=== PATIENT | female | born 1965 | race Caucasian/White ===

== ENCOUNTER → 2024-03-16 | Day surgery (SDC) | payer MEDICARE, MEDICAID ==
[~2024-03-16] VITALS: Ht 162.6 cm; Wt 61.2 kg
[~2024-03-16] MED LIST: ACETAMINOPHEN 1000MG/100ML 100 ML IV NR; ALBU18HF2 IH; ALBUTEROL (0.083%) 2.5MG/3ML NEB ONE; ALBUTEROL 6.7GM HFA INHALER ONE; BUPIVACAINE HCL/PF 0.5% (5MG/ML) 10ML ONE; CEFAZOLIN SODIUM 1000MG/VIAL ONE; DEXAMETHASONE 4MG/ML 1ML VIAL ONE; FENTANYL CITRATE/PF 50MCG/ML 2ML VIAL IV PRN; FENTANYL CITRATE/PF 50MCG/ML 2ML VIAL ONE; GLYCOPYRROLATE 0.2 MG/ML 2ML VIAL ONE; LABE200T9 PO; LIDOCAINE HCL 1% 20ML VIAL ONE; MIDAZOLAM HCL 2 MG/2 ML VIAL ONE; MONT-39 PO; OLME40TA18 PO; ONDANSETRON HCL 4MG/2ML INJ IV PRN; ONDANSETRON HCL 4MG/2ML INJ ONE; PROPOFOL 200MG/20ML VIAL IV ONE; ROCURONIUM BROMIDE 10MG/ML VIAL 5ML IV ONE; ROSU40TA PO; SKIN ADHESIVE 0.7 GM EA TOP ONE; SUGAMMADEX SODIUM 200MG/2ML VIAL IV ONE
[2024-03-16] MEDS: LACTATED RINGERS 1,000 ML IV SCH (06:28)
[2024-03-16] MEDS: ALBUTEROL (0.083%) 2.5MG/3ML NEB HHN NR (09:27)
[2024-03-16] MEDS: BUPIVACAINE HCL 0.5% 175 ML in ON-Q PM013 DRUG DELIV DEVICE 1 EA IR NR (09:30)
[2024-03-16 09:35] VITALS: PULSE 70; RESP 16; O2SAT 100
== END | disposition home or self-care (01) ==
LOC: OR 05:28
PROVIDERS: ATTEND Surgery
DX: K40.90 Unilateral inguinal hernia, without obstruction or gangrene, not specified as recurrent (principal); I10 Essential (primary) hypertension; E78.5 Hyperlipidemia, unspecified; J45.909 Unspecified asthma, uncomplicated; F41.9 Anxiety disorder, unspecified; Z79.899 Other long term (current) drug therapy; Z90.710 Acquired absence of both cervix and uterus; Z98.890 Other specified postprocedural states; Z88.0 Allergy status to penicillin; Z88.5 Allergy status to narcotic agent; Z88.8 Allergy status to other drugs, medicaments and biological substances
CPT/HCPCS: 49505; 94640; C1781; J3010; J0131; J3490 ×5; J0690; J1100; J2250; J2405; J2704

== ENCOUNTER 2024-03-18 09:55 | Emergency (ER) | payer MEDICARE, MEDICAID ==
[~2024-03-18] VITALS: Ht 167.6 cm; Wt 69.0 kg
[~2024-03-18 09:55] MED LIST changes: -ACETAMINOPHEN 1000MG/100ML 100 ML IV NR; -ALBUTEROL (0.083%) 2.5MG/3ML NEB ONE; -ALBUTEROL 6.7GM HFA INHALER ONE; -BUPIVACAINE HCL/PF 0.5% (5MG/ML) 10ML ONE; -CEFAZOLIN SODIUM 1000MG/VIAL ONE; -DEXAMETHASONE 4MG/ML 1ML VIAL ONE; -FENTANYL CITRATE/PF 50MCG/ML 2ML VIAL IV PRN; -FENTANYL CITRATE/PF 50MCG/ML 2ML VIAL ONE; -GLYCOPYRROLATE 0.2 MG/ML 2ML VIAL ONE; -LIDOCAINE HCL 1% 20ML VIAL ONE; -MIDAZOLAM HCL 2 MG/2 ML VIAL ONE; -ONDANSETRON HCL 4MG/2ML INJ IV PRN; -ONDANSETRON HCL 4MG/2ML INJ ONE; -PROPOFOL 200MG/20ML VIAL IV ONE; -ROCURONIUM BROMIDE 10MG/ML VIAL 5ML IV ONE; -SKIN ADHESIVE 0.7 GM EA TOP ONE; -SUGAMMADEX SODIUM 200MG/2ML VIAL IV ONE
[2024-03-18 10:04] VITALS: O2SAT 98
[2024-03-18 14:00] VITALS: BP 149/94; PULSE 65; RESP 18; TEMP 36.72516; O2SAT 98
== END 2024-03-18 14:00 | disposition home or self-care (01) ==
LOC: ER 09:55
DX: Z47.2 Encounter for removal of internal fixation device (principal); J45.909 Unspecified asthma, uncomplicated; I10 Essential (primary) hypertension; Z90.49 Acquired absence of other specified parts of digestive tract; Z90.710 Acquired absence of both cervix and uterus; Z98.890 Other specified postprocedural states; Z88.0 Allergy status to penicillin; Z88.5 Allergy status to narcotic agent; Z79.899 Other long term (current) drug therapy
CPT/HCPCS: 99281